=== PATIENT | male | born 1960 | race Caucasian/White ===

== ENCOUNTER 2022-11-17 12:17 | Emergency (ER) | payer OTHER ==
[2022-11-17 13:49] LABS: BASOPHILS ABSOLUTE AUTO 0.05 K/uL (0.00-0.10); BASOPHILS PERCENT AUTO 1.4 % (0.1-1.3); EOSINOPHILS ABSOLUTE AUTO 0.18 K/uL (0.00-0.40); EOSINOPHILS PERCENT AUTO 4.9 % (0.0-5.4); HEMATOCRIT 36.5 % (38.4-49.7); HEMOGLOBIN 11.7 g/dL (12.9-16.9); IMMATURE GRAN PERCENT AUTO 0.3 % (0.0-0.7); LYMPHOCYTES ABSOLUTE AUTO 0.57 K/uL (0.8-3.3); LYMPHOCYTES PERCENT AUTO 15.4 % (11.4-47.7); MEAN CORPUSCULAR HEMOGLOBIN 26.6 pg (31.6-35.5); MEAN CORPUSCULAR HGB CONC 32.1 g/dL (31.6-35.5); MONOCYTES ABSOLUTE AUTO 0.67 K/uL (0.20-0.90); MONOCYTES PERCENT AUTO 18.2 % (3.3-12.6); NEUTROPHILS ABSOLUTE AUTO 2.21 K/uL (1.0-7.6); NEUTROPHILS PERCENT AUTO 59.8 % (40.0-78.1); PLATELET COUNT,PLT 217 K/uL (130-375); WHITE BLOOD CELL COUNT,WBC 3.7 K/uL (3.2-11.0)
[2022-11-17 13:51] LABS: IMMATURE GRAN ABSOLUTE AUTO 0.01 K/uL (0.00-0.23)
[2022-11-17 14:03] LABS: ANION GAP 8.4 mmol/L (5.0-14.0); CALCIUM 8.5 mg/dL (8.5-10.1); EST CRCL DRUG DOSING (CG) 85.45 mL/min; POTASSIUM,K 3.6 mmol/L (3.6-5.2)
[2022-11-17 14:08] LABS: INR 1.1; PROTHROMBIN TIME 10.7 sec (9.2-10.6); PTT,PARTIAL THROMBOPLSTIN TIME 23.2 sec (21.8-27.3)
== END 2022-11-17 15:25 | disposition home or self-care (01) ==
LOC: JP.ED 12:17
DX: R31.0 Gross hematuria (principal); K21.9 Gastro-esophageal reflux disease without esophagitis; E78.00 Pure hypercholesterolemia, unspecified; I10 Essential (primary) hypertension; E66.9 Obesity, unspecified; Z68.41 Body mass index [BMI] 40.0-44.9, adult; Z91.048 Other nonmedicinal substance allergy status; Z79.899 Other long term (current) drug therapy; Z87.891 Personal history of nicotine dependence
CPT/HCPCS: 36415; 80048; 85025; 85610; 85730; 99283